=== PATIENT | male | born 1970 | race Caucasian/White ===

== ENCOUNTER → 2018-08-09 | Outpatient (CLI) | payer BC ==
--- NOTE | 2018-08-09 15:03 | RAD ---
DOPPLER CAROTID BILAT Clinical Indication: LIGHTHEADED AND DIZZY. Procedure: Pulsed wave and color-flow duplex imaging was utilized to evaluate the extracranial carotid arteries. Comparison: None. Findings: RIGHT SIDE: Mild atherosclerotic plaque on olivera-scale images. Mid CCA peak systolic velocity 72 cm/sec. ICA peak systolic velocity 67 cm/sec. The right ICA/CCA ratio is 0.9. Flow within the right vertebral artery and right ECA is directed antegrade. LEFT SIDE: Mild atherosclerotic plaque on olivera-scale images. Mid CCA peak systolic velocity 82 cm/sec. ICA peak systolic velocity 66 cm/sec. The left ICA/CCA ratio is 0.8. Flow within the left vertebral artery and left ECA is directed antegrade. Carotid legend: CCA = common carotid artery ICA = internal carotid artery ECA = external carotid artery IMPRESSION: No hemodynamically significant stenosis. Electronically signed by: Juan Daniel Soto DO (08/09/2018 2:58 PM) [id number]
== END | disposition home or self-care (01) ==
LOC: US 10:40
PROVIDERS: ATTEND Nurse Practitioner Family
DX: I65.23 Occlusion and stenosis of bilateral carotid arteries (principal); E78.2 Mixed hyperlipidemia
CPT/HCPCS: 93880